=== PATIENT | male | born 1995 | race Caucasian/White ===

== ENCOUNTER 2019-09-25 15:15 | Emergency (ER) | payer BC, OTHER ==
[~2019-09-25] VITALS: Ht 177.8 cm; Wt 204.1 kg
[2019-09-25 15:18] VITALS: BP_SYST 133
[2019-09-25] MEDS ORDERED: KETOROLAC TROMETHAMINE 30 MG VIAL IVP ONE (15:45)
[2019-09-25] MEDS ORDERED: ONDANSETRON HCL 4 MG/2 ML VIAL IVP ONE ×2 (16:30→17:30)
[2019-09-25] MEDS ORDERED: NACL 0.9% 1,000 ML IV ONE (17:30)
[2019-09-25] MEDS ORDERED: MORPHINE 2 MG/ML INJ. SYRINGE IVP ONE (17:30)
[2019-09-25 18:10] LABS: BASOPHILS # (AUTO) 0.1 K/uL (0.0-0.2); BASOPHILS % (AUTO) 0.6 % (0.0-2.0); EOSINOPHILS % (AUTO) 0.2 % (0.0-4.0); HEMATOCRIT 43.6 % (36-54); HEMOGLOBIN 14.2 g/dL (14.0-18.0); LYMPHOCYTES # (AUTO) 1.2 K/uL (1.0-5.5); LYMPHOCYTES % (AUTO) 12.9 % (20.5-51.5); MEAN CORPUSCULAR HEMOGLOBIN 26 pg (27-31); MEAN CORPUSCULAR HGB CONC 33 % (32-36); MEAN CORPUSCULAR VOLUME 81 fL (79.0-98.0); MONOCYTES # (AUTO) 0.5 K/uL (0.0-1.0); MONOCYTES % (AUTO) 5.4 % (1.7-9.3); NEUTROPHILS # (AUTO) 7.8 K/uL (1.8-7.7); NEUTROPHILS % (AUTO) 80.9 % (40.0-70.0); PLATELET COUNT (AUTO) 245 K/uL (130-430); RED BLOOD CELL COUNT(AUTO) 5.41 MIL/uL (4.2-6.2); WHITE BLOOD COUNT (AUTO) 9.7 K/uL (4.8-10.8)
[2019-09-25 18:25] LABS: CALCIUM 9.7 mg/dL (8.4-11.0); CREATININE 0.93 mg/dL (0.55-1.30); POTASSIUM 3.6 mmol/L (3.5-5.1)
[2019-09-25 18:41] LABS: ALBUMIN 3.7 g/dL (3.4-4.8); TOTAL BILIRUBIN 0.3 mg/dL (0.0-1.0)
[2019-09-25 18:45] LABS: BILIRUBIN,URINE NEGATIVE (NEGATIVE); BLOOD, URINE NEGATIVE (NEGATIVE); COLOR,URINE YELLOW (YELLOW); GLUCOSE,URINE NEGATIVE (NEGATIVE); KETONES,URINE 2+ (NEGATIVE); LEUKOCYTE ESTERASE ,URINE NEGATIVE (NEGATIVE); NITRITE, URINE NEGATIVE (NEGATIVE); PH,URINE 8.5 (5.0-8.0); PROTEIN URINE 2+ (NEGATIVE); UROBILINOGEN,URINE 0.2 (0.2-1.0)
[2019-09-25 18:51] LABS: CLARITY/URINE SLIGHTLY HAZY (CLEAR)
[2019-09-25] MEDS ORDERED: MORPHINE 4 MG/ML INJ. SYRINGE IVP ONE (19:00)
[2019-09-25] MEDS ORDERED: METOCLOPRAMIDE HCL 10 MG/2 ML VIAL IVP ONE (19:00)
[2019-09-25 19:04] LABS: BARBITURATE, URINE NEGATIVE (NEG <=200); BENZODIAZEPINE, URINE NEGATIVE (NEG <=150); CANNABINOID, URINE NEGATIVE (NEG <=50); COCAINE, URINE NEGATIVE (NEG <=150); METHAMPHETAMINES SCREEN,URINE NEGATIVE (NEG <=500); OPIATE, URINE NEGATIVE (NEG <=100); PHENCYCLIDINE SCREEN,URINE NEGATIVE (NEG <=25); UR TRICYCLIC ANTIDEPRESSANTS NEGATIVE (NEG <=300); URINE AMPHETAMINE NEGATIVE (NEG <=500); URINE METHADONE NEGATIVE (NEG <=200); URINE OXYCODONE SCREEN NEGATIVE (NEG <=100); URINE PROPOXYPHENE SCREEN NEGATIVE (NEG <=300)
[2019-09-25 19:18] LABS: RBC,URINE 0-3 /HPF (0-3)
[2019-09-25 19:19] LABS: BACTERIA,URINE MODERATE /HPF (None Seen)
[2019-09-25 19:20] LABS: HYALINE CASTS, URINE 0-10 /LPF (None Seen); MUCUS,URINE 3+ /LPF (None Seen)
[2019-09-25 20:23] VITALS: BP_SYST 143
== END 2019-09-25 20:23 | disposition home or self-care (01) ==
LOC: SED 15:15
DX: R51 Headache (principal); R11.2 Nausea with vomiting, unspecified; F12.90 Cannabis use, unspecified, uncomplicated; Z88.0 Allergy status to penicillin
CPT/HCPCS: 36415; 70450; 80053; 80307; 81000; 82140; 85025; 87086; 93005; 96361; 96374; 96375; 96376; 99285; G0482; J1885; J2270 ×2; J2405; J2765; J7030

== ENCOUNTER 2021-02-17 22:21 | Emergency (ER) | payer MEDICAID, SELFPAY ==
[2021-02-17 22:21] VITALS: BP_SYST 157
[2021-02-18] MEDS ORDERED: SUMAtriptan SUCCINATE 6 MG/0.5 ML VIAL SUBCUT ONE
[2021-02-18] MEDS ORDERED: ONDANSETRON 4 MG ODT TAB PO ONE
--- NOTE | 2021-02-18 | NUR ---
MD SLATER IN TRIAGE ROOM EXAMINING PATIENT
--- NOTE | 2021-02-18 00:10 | NUR ---
Medicated w/ zofran 4mg odt and imitrex 6mg sq per MD orders. Will cont to monitor and observe for any adverse reaction. patient b/p noted to be slight elevated 157/99 prior to admin medication. will monitor b/p.
--- NOTE | 2021-02-18 00:22 | NUR ---
patient b/p noted after admin of medication 137/102, patient denies any pain but described h/a as a "numbness". will continue pt b/p. No neuro focal deficits noted.
[2021-02-18] MEDS ORDERED: IMI50 PO (00:49)
--- NOTE | 2021-02-18 00:56 | NUR ---
Patient given written and verbal discharge instructions and verbalizes understanding. ER MD discussed with patient the results and treatment provided. Patient in stable condition. ID arm band removed. Rx of Sumatripatan given. Patient educated on pain management and to follow up with PMD. Pain Scale 0. Opportunity for questions provided and answered. Medication side effect fact sheet provided.
[2021-02-18 00:58] VITALS: BP_SYST 144
== END 2021-02-18 00:58 | disposition home or self-care (01) ==
LOC: SED 22:21
DX: G43.409 Hemiplegic migraine, not intractable, without status migrainosus (principal); Z88.1 Allergy status to other antibiotic agents; R00.0 Tachycardia, unspecified
CPT/HCPCS: 96372; 99283; J3030; Q0162